=== PATIENT | male | born 1965 ===

== ENCOUNTER 2025-03-09 10:29 | Emergency (ER) | payer OTHER ==
[~2025-03-09] VITALS: Ht 172.7 cm; Wt 70.0 kg
[2025-03-09 10:34] VITALS: TEMP 36.9; O2SAT 100
[2025-03-09] MEDS ORDERED: BO1 TP (11:42)
[2025-03-09] MEDS ORDERED: ONDA-239 PO (11:42)
[2025-03-09] MEDS ORDERED: CEPH500C2 MT (11:42)
[2025-03-09 12:29] VITALS: BP 125/80; PULSE 92; RESP 12; O2SAT 99
== END 2025-03-09 12:32 | disposition home or self-care (01) ==
LOC: ER 10:29
DX: R21 Rash and other nonspecific skin eruption (principal)
CPT/HCPCS: 99283